=== PATIENT | male | born 1995 | race Caucasian/White ===

== ENCOUNTER 2021-01-22 15:06 | Emergency (ER) | payer OTHER, SELFPAY ==
--- NOTE | ~2021-01-22 | CT_ITS ---
EXAMINATION: CT abdomen pelvis wo con DATE: 01/22/2021 16:00 INDICATION: Right flank pain TECHNIQUE: Computed tomography (CT) of the abdomen and pelvis was performed without intravenous contr ast. The dose-length product (DLP) was 161.01 mGy-cm. Automated exposure control and iterative recons truction technique were employed. COMPARISON: None FINDINGS: The lung bases are clear. The heart size is normal. There is a 4 mm cyst in the right. This , pancreas, gallbladder, and adrenal glands are normal. The kidneys are unremarkable. No stones are i dentified in the kidneys, ureters, or bladder. There is no hydronephrosis or hydroureter. The appendi x is normal. IMPRESSION: 1. No CT correlate for the patient's symptoms. Reviewed, dictated and finalized at location A.
[2021-01-22 15:09] VITALS: BP 150/88; PULSE 67; RESP 16; TEMP 37; O2SAT 100
--- NOTE | 2021-01-22 15:52 | ED.GENADULT ---
HPI - General Adult General Chief complaint: Back Pain/Injury Stated complaint: back pain Time Seen by Provider: 01/22/21 15:33 History of Present Illness HPI narrative: Patient is a 25-year-old male who presents ER with right-sided flank pain and urinary frequency. Ongoing for 2 days. Reports he noted some sediment in his urine a couple days ago. Was seen at urgent care last night and told he had trace blood in his urine. Reports he is sexually active with multiple partners without protection. No dysuria or urethral discharge. No pain into his testicles. No previous history of kidney stones. Denies fevers or chills or sweats. No alleviating factors. Related Data Allergies Allergy/AdvReac Type Severity Reaction Status Date / Time No Known Allergies Allergy Verified 01/22/21 15:12 Review of Systems Constitutional: Constitutional: Denies chills and Denies fever(s) ENT: Reports nasal congestion and Reports sore throat Gastrointestinal: Gastrointestinal: Denies abdominal pain, Denies nausea and Denies vomiting Genitourinary: Genitourinary: Reports hematuria, Denies oliguria, Denies dysuria, Denies penile discharge, Denies testicular pain, Reports urinary frequency and Denies urinary incontinence Musculoskeletal: Musculoskeletal: Reports back pain and Denies muscle cramps PMFSH Past Medical History Medical History (Updated 01/22/21 @ 16:56 by Carloz Pickard MD) Healthy adult male Surgical History Surgical History (Updated 01/22/21 @ 15:54 by Carloz Pickard MD) No history of previous surgery Social History Social History (Updated 01/22/21 @ 15:54 by Carloz Pickard MD) Substance use type: marijuana Exam Narrative: Exam Narrative: GENERAL: Well-appearing, well-nourished, and in no acute distress. HEAD: Normocephalic, atraumatic. CHEST: Clear to auscultation. No respiratory distress. HEART: Regular rate and rhythm. Normal peripheral pulses. ABDOMEN: Soft, nontender, nondistended, no CVA tenderness. EXTREMITIES: Normal range of motion. No edema. SKIN: Warm, dry, no rash. NEURO: Alert and oriented x3. PSYCH: Normal mood and affect. Course Course Emergency Course: Patient informed of results. Unsure why patient is having urinary symptoms, discussed that he is at high risk of possible STI given the fact has had multiple partners while having unprotected sex. Will treat with ceftriaxone and oral doxycycline. Vital Signs Vital signs: Vital Signs Temperature 98.6 F 01/22/21 15:09 Pulse Rate 67 01/22/21 15:09 Respiratory Rate 16 01/22/21 15:09 Blood Pressure 150/88 H 01/22/21 15:09 Pulse Oximetry 100 01/22/21 15:09 Temperature 98.6 F 01/22/21 15:09 Pulse Rate 67 01/22/21 15:09 Respiratory Rate 16 01/22/21 15:09 Blood Pressure 150/88 H 01/22/21 15:09 Pulse Oximetry 100 01/22/21 15:09 Medical Decision Making Vital Signs Vital Signs: Vital Signs Temperature 98.6 F 01/22/21 15:09 Pulse Rate 67 01/22/21 15:09 Respiratory Rate 16 01/22/21 15:09 Blood Pressure 150/88 H 01/22/21 15:09 Pulse Oximetry 100 01/22/21 15:09 Temperature 98.6 F 01/22/21 15:09 Pulse Rate 67 01/22/21 15:09 Respiratory Rate 16 01/22/21 15:09 Blood Pressure 150/88 H 01/22/21 15:09 Pulse Oximetry 100 01/22/21 15:09 Lab Data Labs: Lab Results 01/22/21 01/22/21 Range/Units 16:08 16:09 Urine Color Straw (Yellow) Urine Appearance Clear (Clear) Urine pH 7.0 (5.0-9.0) Ur Specific [place] 1.012 (1.001-1.035) Urine Protein Negative (Negative) mg/dL Urine Glucose (UA) Negative (Negative) mg/dL Urine Ketones Negative (Negative) mg/dL Ur Blood (Man) Negative (Negative) Urine Nitrate Negative (Negative) Urine Bilirubin Negative (Negative) Urine Urobilinogen Negative (<2.0) mg/dL Leukocyte Esterase Rfl Negative (Negative) ANNA/UL C.trachomatis RNA (TMA) Pending N.gonorrhoeae RNA (TMA) Pe
[2021-01-22 16:17] LABS: Add Urine Microscopic? NO; Appearance Urine Clear (Clear); Bilirubin Urine Negative (Negative); Blood Urine Negative (Negative); Color Urine Straw (Yellow); Glucose Urine UA Negative (Negative); Ketones Urine Negative (Negative); Leukocyte Esterase Ur Negative LEU/UL (Negative); Nitrate Urine Negative (Negative); Protein Urine Negative (Negative); Specific Grav Ur 1.012 (1.001-1.035); Urobilinogen Urine Negative mg/dL (<2.0)
[2021-01-22] MEDS: LIDOCAINE HCL 1% LOCAL INJ 20 ML VIAL (16:56)
[2021-01-22] MEDS: cefTRIAXone 1 GM VIAL 0.5 GM IM (16:56)
== END 2021-01-22 17:40 | disposition home or self-care (01) ==
PROVIDERS: Emergency Provider Emergency Medicine
DX: R35.0 Frequency of micturition (principal)
CPT/HCPCS: 74176; 81003; 87491; 87591; 96372; 99284; J0696

== ENCOUNTER 2022-10-06 07:07 | Emergency (ER) | payer OTHER, SELFPAY ==
--- NOTE | 2022-10-06 07:16 | ECG_ITS ---
Measurements Intervals [place] Rate: 95 P: 72 W[place]: 178 QRS: 71 QRSD: 89 T: 45 QT: 336 QTc: 424 Interpretive Statements SINUS RHYTHM MINIMAL VOLTAGE CRITERIA FOR LVH, CONSIDER NORMAL VARIANT [MEETS CRITERIA IN ONE OF: R(aVL), S(V1), R(V5), R(V5/V6)+S(V1)] NO PREVIOUS ECG AVAILABLE FOR COMPARISON Electronically Signed On 10-06-2022 14:51:28 [employer]ING SERVICE TECHNICIAN by Vikash Silva M.D.
[2022-10-06 07:17] VITALS: BP 131/102; PULSE 100; RESP 20; O2SAT 100
[2022-10-06 07:47] VITALS: BP 131/70; PULSE 76; RESP 18; O2SAT 100
[2022-10-06 08:01] VITALS: BP 117/75; PULSE 73; RESP 13; O2SAT 98
--- NOTE | 2022-10-06 08:14 | ED.GENADULT ---
HPI - General Adult General Chief complaint: Arrhythmia/Palpitations Stated complaint: palpations Time Seen by Provider: 10/06/22 07:22 History of Present Illness HPI narrative: Patient is a 27-year-old male who presents ER with palpitations. Reports he woke up this morning and was feeling his heart skip a beat and beat heart as well. No chest pain. No sweats/nausea/vomiting. Patient has been having increased acid reflux as well as dysphagia. He is scheduled to see an ENT. He has not been referred to GI. He takes Tums on occasion. No exertional symptoms with his skipped beats. No caffeine abuse. No history of heart arrhythmia. Related Data Allergies Allergy/AdvReac Type Severity Reaction Status Date / Time No Known Allergies Allergy Verified 01/22/21 15:12 Review of Systems Review of Systems: All systems reviewed & are unremarkable except as noted in HPI and below Constitutional: Constitutional: Denies chills, Denies fatigue and Denies fever(s) ENT: Reports dysphagia and Denies sore throat Cardiovascular: Cardiovascular: Denies chest pain, Denies rapid heart rate and Denies radiating jaw, neck or arm pain Comments: palpitations Respiratory: Respiratory: Denies cough and Denies dyspnea Gastrointestinal: Gastrointestinal: Denies abdominal pain, Reports heartburn, Denies nausea and Denies vomiting PMFSH Past Medical History Medical History (Updated 10/06/22 @ 10:43 by Carloz Pickard MD) Healthy adult male Surgical History Surgical History (Updated 01/22/21 @ 15:54 by Carloz Pickard MD) No history of previous surgery Social History Social History (Updated 01/22/21 @ 15:54 by Carloz Pickard MD) Substance use type: marijuana Exam Narrative: GENERAL: Well-appearing, well-nourished, and in no acute distress. HEAD: Normocephalic, atraumatic. ENT: Mucous membranes moist. CHEST: Clear to auscultation. No respiratory distress. HEART: Regular rate and rhythm. No murmur heard. Normal peripheral pulses. EXTREMITIES: Normal range of motion. No edema. SKIN: Warm, dry, no rash. NEURO: Alert and oriented x3. PSYCH: Normal mood and affect. Course Course Emergency Course: Lab work/EKG unremarkable. Patient did have some PVCs on his rhythm strip. He also could be having esophageal spasm or esophagitis related to his heartburn. Patient be started on Protonix and discharged home. Recommend follow-up with PCP. Patient verbalized understanding treatment plan. Vital Signs Vital signs: Vital Signs Pulse Rate 100 10/06/22 07:17 Respiratory Rate 20 10/06/22 07:17 Blood Pressure 131/102 H 10/06/22 07:17 Pulse Oximetry 100 10/06/22 07:17 Oxygen Delivery Room Air 10/06/22 07:17 Pulse Rate 95 10/06/22 08:16 Respiratory Rate 22 H 10/06/22 08:16 Blood Pressure 114/69 10/06/22 08:16 Pulse Oximetry 98 10/06/22 08:16 Oxygen Delivery Room Air 10/06/22 07:17 Medical Decision Making Vital Signs Vital Signs: Vital Signs Pulse Rate 100 10/06/22 07:17 Respiratory Rate 20 10/06/22 07:17 Blood Pressure 131/102 H 10/06/22 07:17 Pulse Oximetry 100 10/06/22 07:17 Oxygen Delivery Room Air 10/06/22 07:17 Pulse Rate 95 10/06/22 08:16 Respiratory Rate 22 H 10/06/22 08:16 Blood Pressure 114/69 10/06/22 08:16 Pulse Oximetry 98 10/06/22 08:16 Oxygen Delivery Room Air 10/06/22 07:17 Lab Data 10/06/22 08:35 10/06/22 08:35 Labs: Lab Results 10/06/22 10/06/22 Range/Units 08:35 08:35 WBC 4.9 (4.5-10.0) K/mm3 RBC 4.58 L (4.6-6.20) M/mm3 Hgb 14.1 (14.0-18.0) g/dL Hct 40.8 L (42.0-52.0) % MCV 89.1 (80-100) fl MCH 30.8 (26-34) pg MCHC 34.6 (32-36) g/dl RDW 12.5 (11.5-14.5) % Plt Count 232 (150-375) k/mm3 MPV 8.3 (7.4-10.4) fl Immature Gran % (Auto) 2.3 H (0-0.5) % Neut % (Auto) 63.8 (45.5-73.1) % Lymph % (Auto) 23.8 (18.3-44.2) % [place] % (Auto)
[2022-10-06 08:16] VITALS: BP 114/69; PULSE 95; RESP 22; O2SAT 98
[2022-10-06 08:40] LABS: Basophils Absolute Auto 0.1 K/mm3 (0.0-0.1); Eosinophils Absolute Auto 0.1 K/mm3 (0-0.3); Eosinophils Percent Auto 2.1 % (0-4.4); Hematocrit 40.8 % (42.0-52.0); Hemoglobin 14.1 g/dL (14.0-18.0); Immature Granulocyte Absolute 0.11 K/mm3 (0.00-0.031); Immature Granulocyte Percent A 2.3 % (0-0.5); Lymphocytes Absolute Auto 1.16 K/mm3 (0.9-3.2); Lymphocytes Percent Auto 23.8 % (18.3-44.2); Mean Corpuscular HGB Conc 34.6 g/dl (32-36); Mean Corpuscular Hemoglobin 30.8 pg (26-34); Mean Corpuscular Volume 89.1 fl (80-100); Mean Platelet Volume 8.3 fl (7.4-10.4); Monocytes Absolute Auto 0.3 K/mm3 (0.1-0.6); Neutrophils Absolute Auto 3.1 K/mm3 (1.3-6.7); Neutrophils Percent Auto 63.8 % (45.5-73.1); Platelet Count Result 232 k/mm3 (150-375); Red Blood Count 4.58 M/mm3 (4.6-6.20); Red Cell Distribution Width 12.5 % (11.5-14.5); White Blood Count 4.9 K/mm3 (4.5-10.0)
[2022-10-06 08:49] LABS: Anion Gap 6 mmol/L (8-16); Blood Urea Nitrogen 9 mg/dL (9-20); Calcium 8.8 mg/dL (8.4-10.2); Carbon Dioxide 28 mmol/L (22-30); Chloride 103 mmol/L (98-107); Estimated Glomerular Filt Rate > 60; Glucose 97 mg/dL (65-110); Magnesium 2.1 mg/dL (1.6-2.3); Potassium 3.8 mmol/L (3.4-5.0); Sodium 137 mmol/L (137-145)
== END 2022-10-06 11:18 | disposition home or self-care (01) ==
PROVIDERS: Emergency Provider Emergency Medicine
DX: I49.3 Ventricular premature depolarization (principal); K21.9 Gastro-esophageal reflux disease without esophagitis
CPT/HCPCS: 36415; 80048; 83735; 85025; 93005; 99283

== ENCOUNTER 2022-11-27 07:14 | Emergency (ER) | payer OTHER, SELFPAY ==
--- NOTE | ~2022-11-27 | XR_ITS ---
Portable chest x-ray Comparison: None Clinical History: Palpitations Findings: Lungs are clear, without focal consolidation or pleural effusion. Cardiomediastinal silho uette is unremarkable. Bones and soft tissues are unremarkable. Impression: Normal chest. Reviewed, dictated and finalized at location . Impression: Normal chest.
[2022-11-27 07:15] VITALS: BP 142/87; PULSE 85; RESP 18; TEMP 36.6; O2SAT 100
--- NOTE | 2022-11-27 07:24 | ED.ARRPALP ---
HPI - Arrhythmia/Palpitations General Chief Complaint: Arrhythmia/Palpitations Stated Complaint: heart is racing Time Seen by Provider: 11/27/22 07:17 Source: patient Mode of arrival: ambulatory Limitations: no limitations History of Present Illness HPI narrative: 27 years old white female started a new job at the [employer] September 30, possible stress, work-up with rapid heart rate and slight pressure at the left chest, resolved on arrival to the ED. Patient was seen in our facility October 05 with similar symptoms. And was discharged with a diagnosis of palpitation, scheduled to see a mandarin chinese teacher December 14, 2022 currently patient is asymptomatic with intermittent sighing Related Data Allergies Allergy/AdvReac Type Severity Reaction Status Date / Time No Known Allergies Allergy Verified 11/27/22 07:26 Review of Systems Review of Systems: All systems reviewed & are unremarkable except as noted in HPI and below PMFSH Past Medical History Medical History Healthy adult male Surgical History Surgical History No history of previous surgery Social History Social History Substance use type: marijuana Exam Narrative: General appearance: Well-developed, well-nourished, intermittent sighing Skin: Normal color Head: Normocephalic, nontraumatic Eyes: Clear conjunctiva ENT: Oropharynx normal, ears normal, nose normal Neck: Supple, nontender Chest and respiratory: Airway patent, no respiratory distress, no accessory muscle use Heart: Regular rate/rhythm Abdomen: Soft, nontender, no organomegaly, quiet bowel sounds Vascular: Normal peripheral pulses, normal capillary refill. Musculoskeletal: Normal range of motion, nontender back Neurologic: Alert and oriented ?3, THERMITE [employer]DER is normal as tested, no gross motor deficit Course Vital Signs Vital signs: Vital Signs Temperature 36.6 C 11/27/22 07:15 Pulse Rate 85 11/27/22 07:15 Respiratory Rate 18 11/27/22 07:15 Blood Pressure 142/87 H 11/27/22 07:15 Pulse Oximetry 100 11/27/22 07:15 Oxygen Delivery Room Air 11/27/22 07:15 Temperature 36.6 C 11/27/22 07:15 Pulse Rate 85 11/27/22 07:15 Respiratory Rate 18 11/27/22 07:15 Blood Pressure 142/87 H 11/27/22 07:15 Pulse Oximetry 100 11/27/22 07:15 Oxygen Delivery Room Air 11/27/22 07:15 MDM - Arrhythmia/Palpitations MDM Narrative Medical decision making narrative: Patient presents with palpitation and chest pressure, no coronary risk factors, patient had similar symptoms last month and was diagnosed of palpitation and is scheduled to see a mandarin chinese teacher on 14 December. Patient feeling much better on arrival to the ED, asymptomatic, started new job at [employer] recently with a lot of stress. Anxiety/stress related symptoms is my concern. EKG on arrival showed normal sinus rhythm, no new changes compared to the previous EKG October 26, chest x-ray showed no acute abnormalities. I do not believe patient need any blood work-up at this time specially he had extensive blood work-up last visit October 26. Patient will be discharged to follow-up with his mandarin chinese teacher. Differential Diagnosis Differential diagnosis: Likely palpitations, anxiety and sinus tachycardia Imaging Data My impression: Chest x-ray showed no acute abnormalities ECG Data EKG #1: Attestation: I personally reviewed and interpreted this ECG as follows: ECG completion date: 11/27/22 ECG completion time: 07:52 Interpretation: Normal sinus rhythm at 81 bpm with sinus arrhythmia, n
--- NOTE | 2022-11-27 07:37 | ECG_ITS ---
Measurements Intervals [place] Rate: 81 P: 72 [place]: 164 QRS: 78 QRSD: 102 T: 46 QT: 355 QTc: 414 Interpretive Statements SINUS RHYTHM WITH SINUS ARRHYTHMIA INCOMPLETE RIGHT BUNDLE BRANCH BLOCK BASELINE ARTIFACT- I, II, III, V4 BORDERLINE ECG COMPARED TO ECG 10/06/2022 07:28:46 SINUS ARRHYTHMIA NOW PRESENT Electronically Signed On 11-27-2022 8:09:[address] D.O.
[2022-11-27 08:20] VITALS: BP 127/81; PULSE 81; RESP 16; O2SAT 100
== END 2022-11-27 08:25 | disposition home or self-care (01) ==
PROVIDERS: Emergency Provider Emergency Medicine
DX: R00.2 Palpitations (principal); F41.9 Anxiety disorder, unspecified; I45.10 Unspecified right bundle-branch block
CPT/HCPCS: 71045; 93005; 99283

== ENCOUNTER 2022-11-30 19:59 | Emergency (ER) | payer OTHER, SELFPAY ==
--- NOTE | ~2022-11-30 | XR_ITS ---
EXAMINATION: XR chest 2V DATE: 11/30/2022 20:38 INDICATION: Epigastric pain TECHNIQUE: PA and lateral views of the chest are obtained. COMPARISON: 11/27/2022 FINDINGS: The lungs are free of acute opacities. No pleural effusion or pneumothorax. The cardiomedia stinal silhouette is normal. The visualized bones and soft tissues are unremarkable. IMPRESSION: 1. No acute cardiopulmonary abnormality. Reviewed, dictated and finalized at location F.
[2022-11-30 20:03] VITALS: BP 155/97; PULSE 90; RESP 16; TEMP 36.9; O2SAT 100
--- NOTE | 2022-11-30 20:11 | ED.GENADULT ---
HPI - General Adult General Chief complaint: Chest Pain Stated complaint: abdominal pain Time Seen by Provider: 11/30/22 20:00 History of Present Illness HPI narrative: 27-year-old male presenting to the ED for evaluation of epigastric pain. Patient reports a few hours prior to arrival he was attempting to move a bookshelf and felt a pop in his upper abdomen/chest. Patient since then he has had some increased abdominal pressure with associated nausea without vomiting. Patient then palpated that the base of the sternum and felt what seemed to be a mass. Patient denies any other pain or injury. Patient is otherwise healthy and well-appearing. Related Data Allergies Allergy/AdvReac Type Severity Reaction Status Date / Time No Known Allergies Allergy Verified 11/30/22 19:59 Review of Systems Review of Systems: All systems reviewed & are unremarkable except as noted in HPI and below PMFSH Past Medical History Medical History Healthy adult male Surgical History Surgical History No history of previous surgery Social History Social History Substance use type: marijuana Exam Narrative: APPEARANCE: Well appearing, no pain, no distress, well-nourished. HEAD: normocephalic, atraumatic. EYES: PERRLA/EOMI, conjunctivae clear. NOSE: Normal no drainage NECK: Supple. No adenopathy, no masses. RESPIRATORY: Airway patent, respirations nonlabored. Clear to auscultation bilaterally, no rales, rhonchi, wheezing. CARDIOVASCULAR: Regular rate and rhythm without murmurs rubs or gallops. Xiphoid process was palpated and patient reported tenderness at the xiphoid process. ABDOMINAL: Soft, nondistended normal bowel sounds, mild epigastric tenderness to palpation MUSCULOSKELETAL: Moves all extremities. Strength/ROM intact, No edema, No calf tenderness. NEURO: Alert. Cranial nerves II through XII intact. Good gait. Good coordination SKIN: Warm, dry. Normal Color Course Course Emergency Course: 27-year-old male presenting with epigastric/chest pain. Differential diagnosis does include musculoskeletal injury, abdominal wall strain pneumothorax, chest wall strain. Patient reproducible to his xiphoid process. Patient is afebrile with no leukocytosis. Patient's CMP is similar to his baseline. Chest x-ray shows no acute cardiopulmonary abnormality. Patient's EKG showed normal sinus rhythm. Patient was updated on the results of his work-up. Symptoms are consistent with a chest wall strain. Work-up is reassuring for ruling out ACS, intra-abdominal pathology. Vital Signs Vital signs: Vital Signs Temperature 98.4 F 11/30/22 20:03 Pulse Rate 90 11/30/22 20:03 Respiratory Rate 16 11/30/22 20:03 Blood Pressure 155/97 H 11/30/22 20:03 Pulse Oximetry 100 11/30/22 20:03 Oxygen Delivery Room Air 11/30/22 20:03 Temperature 98.4 F 11/30/22 20:03 Pulse Rate 85 11/30/22 22:30 Respiratory Rate 14 11/30/22 22:30 Blood Pressure 141/89 H 11/30/22 22:30 Pulse Oximetry 98 11/30/22 22:30 Oxygen Delivery Room Air 11/30/22 20:03 Medical Decision Making Vital Signs Vital Signs: Vital Signs Temperature 98.4 F 11/30/22 20:03 Pulse Rate 90 11/30/22 20:03 Respiratory Rate 16 11/30/22 20:03 Blood Pressure 155/97 H 11/30/22 20:03 Pulse Oximetry 100 11/30/22 20:03 Oxygen Delivery Room Air 11/30/22 20:03 Temperature 98.4 F 11/30/22 20:03 Pulse Rate 85 11/30/22 22:30 Respiratory Rate 14 11/30/22 22:30 Blood Pressure 141/89 H 11/30/22 22:30 Pulse Oximetry 98 11/30/22 22:30 Oxygen Delivery Room Air 11/30/22 20:03 Lab Data Lab results reviewed: Yes I reviewed the patient's lab results. 11/30/22 20:42 11/30/22 20:42 Labs: Lab Results 11/30/22 11/30/22 Range/Units 20:42 20:42 WBC
--- NOTE | 2022-11-30 20:13 | ECG_ITS ---
Measurements Intervals [place] Rate: 66 P: 72 SD: 194 QRS: 79 QRSD: 94 T: 55 QT: 358 QTc: 377 Interpretive Statements SINUS RHYTHM NORMAL ECG COMPARED TO ECG 11/27/2022 07:20:59 NO SIGNIFICANT CHANGES Electronically Signed On 11-30-2022 22:35:[address] D.O.
[2022-11-30 20:48] LABS: Basophils Percent Auto 0.8 % (0.2-1.2); Eosinophils Absolute Auto 0.2 K/mm3 (0-0.3); Eosinophils Percent Auto 3.5 % (0-4.4); Hematocrit 41.2 % (42.0-52.0); Hemoglobin 14.3 g/dL (14.0-18.0); Immature Granulocyte Absolute 0.01 K/mm3 (0.00-0.031); Immature Granulocyte Percent A 0.2 % (0-0.5); Lymphocytes Absolute Auto 1.29 K/mm3 (0.9-3.2); Lymphocytes Percent Auto 26.2 % (18.3-44.2); Mean Corpuscular HGB Conc 34.7 g/dl (32-36); Mean Corpuscular Hemoglobin 30.7 pg (26-34); Mean Corpuscular Volume 88.4 fl (80-100); Mean Platelet Volume 8.3 fl (7.4-10.4); Monocytes Absolute Auto 0.7 K/mm3 (0.1-0.6); Neutrophils Absolute Auto 2.7 K/mm3 (1.3-6.7); Neutrophils Percent Auto 55.3 % (45.5-73.1); Platelet Count Result 196 k/mm3 (150-375); Red Blood Count 4.66 M/mm3 (4.6-6.20); Red Cell Distribution Width 12.4 % (11.5-14.5); White Blood Count 4.9 K/mm3 (4.5-10.0)
[2022-11-30 20:57] LABS: Anion Gap 9 mmol/L (8-16); Blood Urea Nitrogen 8 mg/dL (9-20); Calcium 8.7 mg/dL (8.4-10.2); Carbon Dioxide 28 mmol/L (22-30); Chloride 99 mmol/L (98-107); Estimated CRCL calculation 115 ml/min; Estimated Glomerular Filt Rate > 60; Glucose 90 mg/dL (65-110); Lipase 88 U/L (23-300); Potassium 3.6 mmol/L (3.4-5.0); Sodium 136 mmol/L (137-145)
[2022-11-30 21:00] VITALS: BP 147/90; PULSE 80; RESP 19; O2SAT 100
[2022-11-30 22:30] VITALS: BP 141/89; PULSE 85; RESP 14; O2SAT 98
== END 2022-11-30 22:30 | disposition home or self-care (01) ==
PROVIDERS: Emergency Provider Emergency Medicine
DX: R07.89 Other chest pain (principal)
CPT/HCPCS: 36415; 71046; 80048; 83690; 85025; 93005; 99283